=== PATIENT | female | born 1990 | race Caucasian/White ===

== ENCOUNTER 2016-12-02 14:31 | Emergency (ER) | payer BC, MEDICAID ==
[~2016-12-02] VITALS: Ht 165.1 cm; Wt 64.7 kg
[2016-12-02] MEDS ORDERED: SODIUM CHLORIDE FLUSH 10ML SYR IVF ONE (15:00)
[2016-12-02] MEDS ORDERED: ONDANSETRON 2MG/ML, 2ML IVPush ONE (15:00)
[2016-12-02] MEDS ORDERED: SODIUM CHLORIDE 0.9% 1,000ML IVBOLUS ONE (15:00)
[2016-12-02 15:30] LABS: BLOOD UREA NITROGEN 12 mg/dL (7-18)
[2016-12-02 15:36] LABS: ASPARTATE AMINO TRANSFERASE 13 U/L (15-37)
[2016-12-02] MEDS ORDERED: MAALOX/HYOSCYAMINE/LIDOCAINE 45 ML BOTTLE PO ONE (16:00)
[2016-12-02] MEDS ORDERED: METRONIDAZOLE PMX 500MG/100ML 100 ML IV ONE (16:00)
[2016-12-02] MEDS ORDERED: FAMOTIDINE 20 MG/2 ML IVPush ONE (16:00)
[2016-12-02] MEDS ORDERED: MAALOX/HYOSCYAMINE/LIDOCAINE 45 ML BOTTLE ONE (16:03)
[2016-12-02] MEDS ORDERED: METRONIDAZOLE PMX 500MG/100ML 100 ML ONE (16:03)
[2016-12-02] MEDS ORDERED: ONDANSETRON 2MG/ML, 2ML ONE (16:04)
[2016-12-02] MEDS ORDERED: FAMOTIDINE 20 MG/2 ML ONE (16:04)
[2016-12-02 18:04] VITALS: BP 100/54
== END 2016-12-02 18:31 | disposition home or self-care (01) ==
LOC: ED 18:25
DX: R19.7 Diarrhea, unspecified (principal); E86.0 Dehydration; Z88.0 Allergy status to penicillin
CPT/HCPCS: 36415; 80053; 83690; 84703; 85025; 96361; 96365; 96366; 96375; 99285; J2405; J7030; S0028